=== PATIENT | female | born 1980 | race Hispanic/Latino ===

== ENCOUNTER → 2018-05-04 | Day surgery (SDC) | payer OTHER ==
[~2018-05-04] MED LIST: FENTANYL CITRATE/PF 100MCG/2 ML INJ ONE; HYOSCYAMINE SULFATE 0.5 MG/ML AMP ONE; MIDAZOLAM HCL 2 MG/2 ML VIAL ONE; PROPOFOL IV EMULSION 10 MG/ML 20 ML VIAL ONE; PROPOFOL IV EMULSION 10 MG/ML 50 ML VIAL ONE; TRINESSA1 EACH PO
[2018-05-04 10:45] LABS: WBC,FECAL (FECAL LACTOFERRIN) NEGATIVE (NEGATIVE)
--- NOTE | 2018-05-04 11:34 | Operative Report ---
DATE OF PROCEDURE: May 04, 2018 REFERRING PHYSICIAN: Dr. Cecilio Roberts PROCEDURES PERFORMED 1. Esophagogastroduodenoscopy with biopsies. 2. Colonoscopy with polypectomy and biopsies. INDICATIONS FOR EGD: Dyspepsia. INDICATIONS FOR COLONOSCOPY: Family history of colon cancer and history of diarrhea. MEDICATION: Patient was done under MAC. Please see anesthesiologist's note. PROCEDURE: With the patient in the left lateral decubitus position, the flexible fiberoptic Olympus gastroscope was introduced into the esophagus under direct visualization without any difficulty. There was some patchy erythema noted in the distal esophagus. The GE junction was somewhat nodular and that was biopsied. The scope was then advanced with ease into the stomach. Mucosa overlying the antrum and the body revealed some patchy erythema and low-grade edema, and biopsies were obtained and sent to stain for H. pylori. Pylorus appeared to be of normal contour and shape. It was intubated with ease. The scope was advanced all the way to the 2nd portion of the duodenum. Biopsies were obtained from the proximal 2nd portion to rule out sprue. The mucosa overlying the duodenal bulb appeared to be within normal limits. The scope was then withdrawn back into the stomach and retroflexed. The mucosa overlying the fundus and the cardia appeared to be within normal limits. The scope was then straightened out. The stomach was decompressed. The scope was subsequently withdrawn. Patient tolerated the procedure well. IMPRESSION 1. Distal esophagitis, mild. 2. Gastroesophageal junction, somewhat nodular, biopsied. 3. Gastritis, biopsied. Biopsies sent to stain for Helicobacter pylori. 4. Rule out sprue. PLAN: Follow up histology. Initiate Protonix 40 mg 1 p.o. q.a.m. a.c. Patient was then turned around. After adequate lubrication of the anal canal, a flexible fiberoptic Olympus colonoscope was inserted into the rectum with ease and advanced all the way to the cecum. The scope was then withdrawn slowly. Mucosa overlying the cecum appeared to be within normal limits. The ileocecal valve was intubated and the scope was advanced into the terminal ileum. Biopsies were obtained. The scope was then withdrawn back into the colon. It was then withdrawn slowly. Mucosa overlying the ascending and the transverse appeared to be within normal limits. One polyp was snared from the descending colon. The mucosa overlying the descending, sigmoid and rectum revealed some patchy areas of erythema and low-grade to moderate edema, and random biopsies were obtained. The scope was then retroflexed into the distal rectum and small internal hemorrhoids were noted, none of which was actively bleeding. The scope was then straightened out. It was subsequently withdrawn after securing an adequate stool specimen that was sent for the appropriate stool studies. Patient tolerated the procedure well. IMPRESSION 1. Descending colon polyp, snared. 2. Mild patchy left-sided colitis. 3. Proctitis, mild. 4. Internal hemorrhoids, none actively bleeding. PLAN: Follow up histology. Follow up stool studies. Start VSL #3 one p.o. daily and Bentyl 10 mg 1 p.o. t.i.d. Patient might benefit from a followup colonoscopy in 3-5 years. Job#: [id number] JOSSIE
[2018-05-04 14:44] LABS: C DIFFICILE TOXIN A&B AMP PROB NEGATIVE (NEGATIVE)
== END | disposition home or self-care (01) ==
LOC: OR 08:26
PROVIDERS: ATTEND Internal Medicine Gastroenterology
DX: K51.50 Left sided colitis without complications (principal); K63.5 Polyp of colon; K62.1 Rectal polyp; K29.70 Gastritis, unspecified, without bleeding; K20.9 Esophagitis, unspecified; K62.89 Other specified diseases of anus and rectum; K64.8 Other hemorrhoids; R03.0 Elevated blood-pressure reading, without diagnosis of hypertension; Z01.810 Encounter for preprocedural cardiovascular examination; Z68.31 Body mass index [BMI] 31.0-31.9, adult; Z80.0 Family history of malignant neoplasm of digestive organs
CPT/HCPCS: 43239; 45380; 45385; 81025; 83630; 83993; 87045; 87177; 87328; 87493; 93005; J1980; J2250

== ENCOUNTER 2020-03-24 22:45 | Emergency (ER) | payer OTHER ==
[~2020-03-24] VITALS: Ht 157.5 cm; Wt 80.7 kg
[~2020-03-24 22:45] MED LIST changes: -FENTANYL CITRATE/PF 100MCG/2 ML INJ ONE; -HYOSCYAMINE SULFATE 0.5 MG/ML AMP ONE; -MIDAZOLAM HCL 2 MG/2 ML VIAL ONE; -PROPOFOL IV EMULSION 10 MG/ML 20 ML VIAL ONE; -PROPOFOL IV EMULSION 10 MG/ML 50 ML VIAL ONE
[2020-03-24] MEDS ORDERED: CLONIDINE HCL 0.1 MG TAB PO ONE (23:00)
--- NOTE | 2020-03-24 23:08 | Emergency Department Note ---
History of Present Illnes History of Present Illness Chief Complaint: Chest Pain History of Present Illness This is a 39 year old female has been having chest tightness and high bp for the past 3 days, recently started on a bp medication. comes to the ed for further evaluation. dr lew in triage. ekg performed and given to dr lew. pt not having chest pain at this time. she states was started on nefedipine on sunday and has appointment with dr latonia wahl next sunday. Historian: Patient Arrival Mode: Car Onset (how long ago): day(s) (3) Radiation: Reports non-radiation Severity: mild Duration (how long): day(s) (3) Timing of current episode: intermittent Progression: resolved Context: Denies recent illness, Denies recent surgery, Denies recent travel Relieving factors: none Exacerbating factors: none Associated symptoms: Reports denies other symptoms Treatments prior to arrival: other (recently started on nefedipine) Past Medical/Family History Physician Review I have reviewed the patient's past medical and family history. Any updates have been documented here. Past Medical History Recent Fever: No Clinical Suspicion of Infectio: No New/Unexplained Change in Ment: No Past Medical History: Hypertension Other Medical History: gerd gastritis fibroids Past Surgical History: None Social History Smoking Cessation: Never Smoker Alcohol Use: None Any Illegal Drug Use: No Physically hurt or threatened: No Review of Systems Review of Systems Constitutional: Reports no symptoms EENTM: Reports no symptoms Cardiovascular: Reports as per HPI Respiratory: Reports no symptoms Gastrointestinal: Reports no symptoms Genitourinary: Reports no symptoms Musculoskeletal: Reports no symptoms Integumentary: Reports no symptoms Neurological: Reports no symptoms Psychological: Reports no symptoms Endocrine: Reports no symptoms Hematological/Lymphatic: Reports no symptoms Physical Exam Related Data Allergies: Coded Allergies: No Known Allergies (Unverified , 04/26/18) Triage Vital Signs Vital Signs Date Time Temp Pulse Resp B/P (MAP) Pulse Ox O2 Delivery O2 Flow Rate FiO2 03/24/20 22:50 98.3 116 22 199/113 100 Room Air Vital signs reviewed: Yes Physical Exam CONSTITUTIONAL Constitutional: Present well-developed, Present well-nourished, Present other (anxious) HENT HENT: Present normocephalic, Present atraumatic, Present oropharynx clear/moist, Present nose normal HENT L/R: Present left ext ear normal, Present right ext ear normal EYES Eyes: Reports PERRL, Reports conjunctivae normal NECK Neck: Present ROM normal PULMONARY Pulmonary: Present effort normal, Present breath sounds normal CARDIOVASCULAR Cardiovascular: Present regular rhythm, Present heart sounds normal, Present capillary refill normal, Present normal rate (96) GASTROINTESTINAL Abdominal: Present soft, Present nontender, Present bowel sounds normal GENITOURINARY Genitourinary: Present exam deferred SKIN Skin: Present warm, Present dry MUSCULOSKELETAL Musculoskeletal: Present ROM normal NEUROLOGICAL Neurological: Present alert, Present oriented x 3, Present no gross motor or sensory deficits PSYCHOLOGICAL Psychological: Present mood/affect normal, Present judgement normal Results Laboratory Laboratory Laboratory Tests Test 03/24/20 23:10 03/24/20 22:58 Urine Color Yellow (YELLOW) Urine Clarity Sl cloudy (CLEAR) Urine pH 5.5 (5 - 7) Urine Specific [place] 1.030 (1.010-1.025) Urine Protein Trace (NEGATIVE) Urine Glucose (UA) Negative (NEGATIVE) Urine Ketones Negative (NEGATIVE) Urine Blood Negative (NEGATIVE) Urine Nitrite Negative (NEGATIVE) Urine Bilirubin Negative (NEGATIVE) Urine Urobilinogen 0.2 mg/dL (0.2 - 1) Urine Leukocyte Esterase Negative (NEGATIVE) Urine RBC 0-5 /HPF (0-5) Urine WBC 6-10 /HPF (0-5) Urine Epithelial Cells Moderate /LPF (NONE) Urine Bacteria Many /HPF (NONE) Urine Test Negative (NEGATIVE) White Blood Count 8.90 x10e3/uL (4.8-10.8) Red Blood Count 4.59 x10e6/uL (3.6-5.1) Hemoglobin 12.0 g/dL (12.0-16.0) Hematocrit 38.4 % (34.2-44.1) Mean Corpuscular Volume 83.7 fL (81-99) Mean Corpuscular Hemoglobin 26.1 pg (28-32) Mean Corpuscular Hemoglobin Concent 31.3 g/dL (31-35) Red Cell Distribution Width 16.3 % (11.7-14.4) Platelet Count 540 x10e3/uL (140-360) Neutrophils (%) (Auto) 47.8 % (38.7-80.0) Lymphocytes (%) (Auto) 40.8 % (18.0-39.1) Monocytes (%) (Auto) 8.5 % (4.4-11.3) Eosinophils (%) (Auto) 1.8 % (0.0-6.0) Basophils (%) (Auto) 0.8 % (0.0-1.0) Neutrophils # (Auto) 4.3 (2.1-6.9) Lymphocytes # (Auto) 3.6 (1.0-3.2) Monocytes # (Auto) 0.8 (0.2-0.8) Eosinophils # (Auto) 0.2 (0.0-0.4) Basophils # (Auto) 0.1 (0.0-0.1) Absolute Immature Granulocyte (auto 0.03 x10e3/uL (0-0.1) Prothrombin Time 12.6 seconds (11.9-14.5) Prothromb Time International Ratio 0.90 Activated Partial Thromboplast Time 26.6 seconds (23.8-35.5) D-Dimer Quantitative (PE/DVT) < 100 ng/mL (0-400) Sodium Level 139 mmol/L (136-145) Potassium Level 3.7 mmol/L (3.5-5.1) Chloride Level 108 mmol/L (98-107) Carbon Dioxide Level 21 mmol/L (22-29) Anion Gap 13.7 mmol/L (8-16) Blood Urea Nitrogen 14 mg/dL (7-26) Creatinine 0.75 mg/dL (0.57-1.11) Estimat Glomerular Filtration Rate > 60 ML/MIN (60-) BUN/Creatinine Ratio 19 (6-25) Glucose Level 112 mg/dL (74-118) Calcium Level 9.4 mg/dL (8.4-10.2) Total Bilirubin 0.2 mg/dL (0.2-1.2) Aspartate Amino Transf (AST/SGOT) 83 IU/L (5-34) Alanine Aminotransferase (ALT/SGPT) 143 IU/L (0-55) Alkaline Phosphatase 133 IU/L (40-150) Creatine Kinase 114 IU/L (29-168) Creatine Kinase MB 0.60 ng/mL (0-5.0) Troponin I 0.012 ng/mL (0-0.300) Total Protein 8.1 g/dL (6.5-8.1) Albumin 3.5 g/dL (3.5-5.0) Globulin 4.6 g/dL (2.3-3.5) Albumin/Globulin Ratio 0.8 (0.8-2.0) Lab results reviewed: Yes Imaging Imaging results reviewed: Yes Impressions Procedure: [id number] DX/CHEST SINGLE (PORTABLE) Exam Date: Exam Time: REPORT STATUS: Signed EXAMINATION: CHEST SINGLE (PORTABLE) INDICATION: Chest pain COMPARISON: None FINDINGS: TUBES and LINES: None. LUNGS: Normal lung volumes. Lungs are clear. No consolidations. PLEURA: No pleural effusion or pneumothorax. HEART AND MEDIASTINUM: The cardiomediastinal silhouette is unremarkable. BONES AND SOFT TISSUES: No acute osseous lesion. Soft tissues are unremarkable. UPPER ABDOMEN: No free air under the diaphragm. IMPRESSION: No acute thoracic radiographic abnormality. Signed by: Jassi Vaughn DO on 03/25/2020 12:24 AM Dictated By: JASSI VAUGHN DO Transcribed By: ESDRAS on 03/25/2023 Procedures 12 Lead ECG Interpretation ECG Interpretation : ECG: ECG 1 Strainer Tender: Interpreted by ED physician Date: Mar 24, 2020 Time: 22:56 Prior ECG tracings: reviewed Rhythm: sinus rhythm Rate: normal BPM: 94 QRS axis: normal ST segments normal: Yes T waves normal: Yes Other findings: no other findings Clinical Impression: normal ECG Assessment & Plan Medical Decision Making MDM pt with elevated blood pressure and chest pain. cbc,cmp, cardiac enzymes, ekg, cxr, ua, d-dimer ordered to eval for myocardial infarction, pulmonary embolism, electrolyte abnormality. clonidine 0.1 mg po ordered pt discharged home to follow up with dr latonia wahl as scheduled macrobid 100 mg po bid Reassessment Reassessment time: 00:54 Reassessment bp 164/92 Assessment & Plan Final Impression: (1) Chest discomfort (2) HTN (hypertension) (3) UTI (urinary tract infection) Depart Disposition: HOME, SELF-CARE Last Vital Signs Date Time Temp Pulse Resp B/P (MAP) Pulse Ox O2 Delivery O2 Flow Rate FiO2 03/24/20 22:50 98.3 116 22 199/113 100 Room Air Home Meds Reported Medications Norgestimate-Ethinyl Estradiol (TRINESSA) 1 Each Tablet, PO DAILY 04/26/18 Medications in the ED Clonidine HCl 0.1 mg ONCE ONCE PO ; Start 03/24/20 at 23:00; Stop 03/24/20 at 23:01; Status UNV BELINDA LEW MD Mar 24, 2020 23:08
[2020-03-24 23:43] LABS: BASOPHILS # (AUTO) 0.1 (0.0-0.1); BASOPHILS % 0.8 % (0.0-1.0); EOSINOPHILS # (AUTO) 0.2 (0.0-0.4); EOSINOPHILS % 1.8 % (0.0-6.0); HEMATOCRIT 38.4 % (34.2-44.1); LYMPHOCYTES # (AUTO) 3.6 (1.0-3.2); LYMPHOCYTES % 40.8 % (18.0-39.1); MEAN CORPUSCULAR HEMOGLOBIN 26.1 pg (28-32); MEAN CORPUSCULAR HGB CONC 31.3 g/dL (31-35); MEAN CORPUSCULAR VOLUME 83.7 fL (81-99); MONOCYTES # (AUTO) 0.8 (0.2-0.8); MONOCYTES % 8.5 % (4.4-11.3); NEUTROPHILS # (AUTO) 4.3 (2.1-6.9); NEUTROPHILS % 47.8 % (38.7-80.0); PLATELET COUNT 540 x10e3/uL (140-360); RED BLOOD COUNT 4.59 x10e6/uL (3.6-5.1); RED CELL DISTRIBUTION WIDTH 16.3 % (11.7-14.4)
[2020-03-24 23:45] LABS: BILIRUBIN,URINE NEGATIVE (NEGATIVE); CLARITY,URINE SL CLOUDY (CLEAR); COLOR,URINE YELLOW (YELLOW); KETONES,URINE NEGATIVE (NEGATIVE); LEUKOCYTE ESTERASE ,URINE NEGATIVE (NEGATIVE); NITRITE,URINE NEGATIVE (NEGATIVE); PREGNANCY TEST, URINE NEGATIVE (NEGATIVE); PROTEIN,URINE DIPSTICK TRACE (NEGATIVE); URINE UROBILINOGEN 0.2 mg/dL (0.2 - 1)
[2020-03-24 23:50] LABS: BACTERIA,URINE MANY /HPF; EPITHELIAL CELLS,URINE MODERATE /LPF; RBC,URINE 0-5 /HPF (0-5)
[2020-03-24 23:52] LABS: INR 0.9; PROTHROMBIN TIME 12.6 seconds (11.9-14.5)
[2020-03-24 23:53] LABS: PARTIAL THROMBOPLASTIN TIME 26.6 seconds (23.8-35.5)
[2020-03-25 00:02] LABS: ALANINE AMINOTRANSFERASE 143 IU/L (0-55); ALBUMIN 3.5 g/dL (3.5-5.0); ALBUMIN/GLOBULIN RATIO 0.8 (0.8-2.0); ALKALINE PHOSPHATASE 133 IU/L (40-150); ANION GAP 13.7 mmol/L (8-16); BLOOD UREA NITROGEN 14 mg/dL (7-26); BUN/CREATININE RATIO 19 (6-25); CALCIUM 9.4 mg/dL (8.4-10.2); CARBON DIOXIDE 21 mmol/L (22-29); CHLORIDE 108 mmol/L (98-107); CREATINE KINASE 114 IU/L (29-168); CREATININE, SERUM 0.75 mg/dL (0.57-1.11); EST GLOMERULAR FILTRATION RATE > 60 ML/MIN (60-); GLUCOSE 112 mg/dL (74-118); POTASSIUM 3.7 mmol/L (3.5-5.1); SODIUM 139 mmol/L (136-145)
--- NOTE | 2020-03-25 00:27 | Diagnostic Imaging Report ---
EXAMINATION: CHEST SINGLE (PORTABLE) INDICATION: Chest pain COMPARISON: None FINDINGS: TUBES and LINES: None. LUNGS: Normal lung volumes. Lungs are clear. No consolidations. PLEURA: No pleural effusion or pneumothorax. HEART AND MEDIASTINUM: The cardiomediastinal silhouette is unremarkable. BONES AND SOFT TISSUES: No acute osseous lesion. Soft tissues are unremarkable. UPPER ABDOMEN: No free air under the diaphragm. IMPRESSION: No acute thoracic radiographic abnormality. Signed by: Jassi Vaughn DO on 03/25/2020 12:24 AM
[2020-03-25 00:56] VITALS: BP 164/92
--- NOTE | 2020-03-25 00:57 | NUR ---
patient now denies chest pain, chest tightness after all results were given to patient stating her examinations were unremarkable. patient denies pain at this moment.
--- OUTSIDE RECORDS SUMMARY | 2020-03-26 20:26 | XMS REPORT | Clinical Summary ---
Author Author [facility] Address Unknown Phone Unavailable Care Team Providers Care Multiple Drum Sander Helper Name Role Phone Andre Alvarez MD PCP Allergies No Known Allergies Medications End Date Status Medication Sig Dispensed Refills Start Date Active TRINESSA, 28, TK 1 T PO 3 0.18/0.215/0.25 mg-35 mcg ONCE A DAY 6 (28) per tablet Active Problems No known active problems Immunizations Name Administration Dates Next Due Tdap 06/30/2016 Family History Medical History Relation Name Comments Breast cancer Maternal Aunt Colon cancer Maternal Grandfather Hypertension Maternal Grandfather Cancer Maternal bladder and esophgu s Grandmother Hypertension Maternal Grandmother Breast cancer Mother Hypertension Mother Relation Name Status Comments Maternal Aunt Alive Maternal Grandfather Maternal Grandmother Mother Alive Social History Date Tobacco Use Types Packs/Day Years Used Former Smoker Cigarettes 0.1 2 Tobacco Cessation: Counseling Given: No Drinks/Week oz/Week Comments Alcohol Use Yes Sex Assigned at Date Recorded Not on file Industry Job Start Date Occupation Not on file Not on file Not on file Travel End Travel History Travel Start No recent travel history available. Last Filed Vital Signs Not on file Plan of Treatment Health Maintenance Due Date Last Done Comments CERVICAL CANCER SCREENING 1999 INFLUENZA VACCINE 03/27/2020 Results Not on fileafter 03/24/2019 Insurance Type Payer Benefit Subscriber ID Effective Phone Address Plan / Dates Group HMO AETNA AETNA xxxxxxxxxx [id number] HMO,POS,EP resent O, [facility] Advance Directives For more information, please contact: [phone] Patient Clinical Scientist Explanation Type Date Recorded Advance Directives, Living Will and Medical Power of Production Counter
--- OUTSIDE RECORDS SUMMARY | 2020-03-26 20:26 | XMS REPORT | Continuity of Care Document ---
Author Author [facility] t Organization [facility] Address [address] [place] [address] Phone Unavailable Care Team Providers Care Internal Affairs Investigator Name Role Phone NO, PCP PCP Unavailable Ander LEW Attlucero Unavailable Payers Payer Name Policy Type Policy Number Effective Date Expiration Date [place] o [id number] 2017 00:00:00 [facility] Problems Condition Name Condition Details Condition Category Status Onset Date Resolution Date Last Treatment Date Treating Clinician Comments Source Chest discomfort Problem Active [facility] Hypertension Problem Active [facility] Urinary tract infection Problem Active [facility] Allergies, Adverse Reactions, Alerts This patient has no known allergies or adverse reactions. Family History Family Member Diagnosis Comments Start Date Stop Date Source Maternal aunt Breast cancer Justus Rivero Maternal grandfather Colon cancer [facility] Maternal grandfather Hypertension [place] [facility] Maternal grandmother Cancer [place] sandrita [facility] Maternal grandmother Hypertension [place] [facility] Natural mother Breast cancer Jerome [facility] Natural mother Hypertension Justus Rivero Social History Social Habit Start Date Stop Date Quantity Comments Source History of tobacco use Cigarette Smoker Justus Rivero Sex Assigned At Sanjay johny Rivero Cigarettes smoked current (pack per day) - Reported 00:00:00 2016-06-30 00:00:00 Justus Rivero Cigarette pack-years 2016-06-30 00:00:00 2016-06-30 00:00:00 Justus Rivero Alcohol intake 2016-06-30 00:00:00 2016-06-30 00:00:00 Current drinker of alcohol (finding) [facility] Smoking Status Start Date Stop Date Source Former smoker 2016-06-30 00:00:00 2016-06-30 00:00:00 Justus Rivero Medications Ordered Medication Name Filled Medication Name Start Date Stop Da te Current Medication? Ordering Clinician Indication Dosage Frequency Signature (SIG) Comments Components Source TRINESSA, 28, 0.18/0.215/0.25 mg-35 mcg (28) per tablet 2015-12-12 00:00:00 Yes TK 1 T PO ONCE A DAY Sanjay johny Anglican Norgestimate-Ethinyl Estradiol (Trinessa) 1 Each TABLE T Norgestimate-Ethinyl Estradiol (Trinessa) 1 Each TABLET Yes Jayashree ly [facility] Immunizations Ordered Immunization Name Filled Immunization Name Date Status Comments Source Tdap 2016-06-30 00:00:00 Completed [place] [facility] Vital Signs Vital Name Observation Time Observation Value Comments Source Body Temperature 2020-03-25 00:56:00 98.5 [degF] [facility] Weight 2020-03-24 22:50:00 178 [lb_av] [facility] BMI (Body Mass Index) 2020-03-24 22:50:00 32.6 kg/m2 [facility] Procedures This patient has no known procedures. Plan of Care Planned Activity Planned Date Details Comments Source Future Scheduled Test 2020-03-27 00:00:00 INFLUENZA VACCINE [code = INFLUENZA VACCINE] Jutsus Rivero Future Scheduled Test 1999 00:00:00 Screening for carina gnant neoplasm of cervix (procedure) [code = 319441880] Justus mariscal Instructions Chest Pain - Noncardiac [facility] Instructions Hypertension [facility] Instructions Urinary Tract Infection - Women [facility] Encounters Start Date/Time End Date/Time Encounter Type Admission Type [facility] Facility Care Department Encounter ID Source 2020-03-24 22:57:00 2020-03-25 01:00:00 Departed Emergency Room 1 BELINDA LEW [facility] [id number] [facility] Results Test Description Test Time Test Comments Results Result Comments Source CHEST SINGLE (PORTABLE) 2020-03-25 00:23:00 [facility] [address] [address] Patient Name: SARAH ANNE MR #: [id number] : 1980 Age/Sex: 39/F Req #: [id number] Adm Physician: Ordered by: BELINDA LEW MD Report #: [id number] Location: ER Room/Bed: Procedure: [id number] DX/CHEST SINGLE (PORTABLE) Exam Date: Exam Time: REPORT STATUS: Signed EXAMINATION: CHEST SINGLE (PORTABLE) INDICATION: Chest pain COMPARISON: None FINDINGS: TUBES and LINES: None. LUNGS: Normal lung volumes. Lungs are clear. No consolidations. PLEURA: No pleural effusion or pneumothorax. HEART AND MEDIASTINUM: The cardiomediastinal silhouette is unremarkable. BONES AND SOFT TISSUES: No acute osseous lesion. Soft tissues are unremarkable. UPPER ABDOMEN: No free air under the diaphragm. IMPRESSION: No acute thoracic radiographic abnormality. Signed by: Jassi Vaughn DO on 03/25/2020 12:24 AM Dictated By: JASSI VAUGHN DO Transcribed By: ESDRAS on 03/25/2023 COPY TO: BELINDA LEW MD Urine color determination 2020-03-24 23:10:00 Test Item Urine Color (test code = 5778-6) YELLOW YELLOW [facility] [id number] 23:10:00* Test Item Value Reference Range Interpretation Comments Urine Clarity (test code = 96241-5) SL CLOUDY CLEAR [facility] of Urine by Test strip 2020-03-24 23:10:00* Test Item Value Reference Range Interpretation Comments Urine Specific [place] (test code = 5811-5) 1.030 1.010-1.02 5 [facility] pH measurement by automated test [id number] 23:10:00* Test Item Value Reference Range Interpretation Comments Urine pH (test code = 25680-9) 5.5 5-7 [facility] leukocyte esterase detection by wxcjzgqy2438-44-48 23:10:00* Test Item Value Reference Range Interpretation Comments Urine Leukocyte Esterase (test code = 5799-2) NEGATIVE NEGATIVE [facility] nitrite [id number] 23:10:00* Test Item Value Reference Range Interpretation Comments Urine Nitrite (test code = 68155-5) NEGATIVE NEGATIVE [facility] protein measurement by test strip (mass/volume)2020-03-24 23:10:00* Test Item Value Reference Range Interpretation Comments Urine Protein (test code = 5804-0) TRACE NEGATIVE [facility] glucose zqzdyegdq6888-39-19 23:10:00* Test Item Value Reference Range Interpretation Comments Urine Glucose (UA) (test code = 2349-9) NEGATIVE NEGATIVE [facility] ketones detection by automated test [id number] 23:10:00* Test Item Value Reference Range Interpretation Comments Urine Ketones (test code = 50200-3) NEGATIVE NEGATIVE [facility] urobilinogen measurement by test strip (mass/volume)2020-03-24 23:10:00* Test Item Value Reference Range Interpretation Comments Urine Urobilinogen (test code = 20797-1) 0.2 0.2-1 [facility] total bilirubin measurement (mass/volume)2020-03-24 23:10:00* Test Item Value Reference Range Interpretation Comments Urine Bilirubin (test code = 1978-6) NEGATIVE NEGATIVE [facility] erythrocytes wqgqqwkmc0785-28-33 23:10:00* Test Item Value Reference Range Interpretation Comments Urine Blood (test code = 65112-4) NEGATIVE NEGATIVE [facility] HospitalAutomated urine sediment leukocyte count by microscopy (number/high power field)2020-03-24 23:10:00* Test Item Value Reference Range Interpretation Comments Urine WBC (test code = 5821-4) 6-10 0-5 [facility] HospitalErythrocytes detection in urine sediment by light myffjixfmg2573-89-03 23:10:00* Test Item Value Reference Range Interpretation Comments Urine RBC (test code = 81074-8) 0-5 0-5 [facility] HospitalBacteria detection in urine sediment by light blunhmwwma5334-51-98 23:10:00* Test Item Value Reference Range Interpretation Comments Urine Bacteria (test code = 38872-2) MANY NONE [facility] HospitalEpithelial cells detection in urine sediment by light yhrddglyjg5096-74-89 23:10:00* Test Item Value Reference Range Interpretation Comments Urine Epithelial Cells (test code = 01128-6) MODERATE NONE [facility] HospitalUrine human chorionic gonadotropin (hCG) zbpgacxbr5411-06-86 23:10:00* Test Item Value Reference Range Interpretation Comments Urine Test (test code = 2106-3) NEGATIVE NEGATIVE [facility] HospitalBlood leukocytes automated count (number/volume)2020-03-24 22:58:00* Test Item Value Reference Range Interpretation Comments White Blood Count (test code = 6690-2) 8.90 4.8-10.8 [facility] HospitalBlood erythrocytes automated count (number/volume)2020-03-24 22:58:00* Test Item Value Reference Range Interpretation Comments Red Blood Count (test code = 789-8) 4.59 3.6-5.1 [facility] HospitalBlood hemoglobin measurement (moles/volume)2020-03-24 22:58:00* Test Item Value Reference Range Interpretation Comments Hemoglobin (test code = 39594-9) 12.0 12.0-16.0 [facility] HospitalAutomated blood hematocrit (volume fraction)2020-03-24 22:58:00* Test Item Value Reference Range Interpretation Comments Hematocrit (test code = 4544-3) 38.4 34.2-44.1 [facility] HospitalAutomated erythrocyte mean corpuscular qoqnis8787-96-40 22:58:00* Test Item Value Reference Range Interpretation Comments Mean Corpuscular Volume (test code = 787-2) 83.7 81-99 [facility] HospitalAutomated erythrocyte mean corpuscular hemoglobin (mass per erythrocyte)2020-03-24 22:58:00* Test Item Value Reference Range Interpretation Comments Mean Corpuscular Hemoglobin (test code = 785-6) 26.1 28-32 [facility] HospitalAutomated erythrocyte mean corpuscular hemoglobin concentration measurement (mass/volume)2020-03-24 22:58:00* Test Item Value Reference Range Interpretation Comments Mean Corpuscular Hemoglobin Concent (test code = 786-4) 31.3 31-35 [facility] HospitalRDW WiuXk-Dxw5224-07-29 22:58:00* Test Item Value Reference Range Interpretation Comments Red Cell Distribution Width (test code = 88176-0) 16.3 11.7 -14.4 [facility] HospitalAutomated blood platelet count (count/volume)2020-03-24 22:58:00* Test Item Value Reference Range Interpretation Comments Platelet Count (test code = 777-3) 540 140-360 [facility] HospitalAutlevine children's hospitaled blood segmented neutrophil count as percentage of total wgfxuxzhzd3829-10-71 22:58:00* Test Item Value Reference Range Interpretation Comments Neutrophils (%) (Auto) (test code = 61023-3) 47.8 38.7-80.0 [facility] HospitalAutomated blood lymphocyte count as percentage ot total pkxecqzdbk3895-63-08 22:58:00* Test Item Value Reference Range Interpretation Comments Lymphocytes (%) (Auto) (test code = 736-9) 40.8 18.0-39.1 [facility] HospitalAutomated blood monocyte count as percentage of total gwghyhboov3698-80-27 22:58:00* Test Item Value Reference Range Interpretation Comments Monocytes (%) (Auto) (test code = 5905-5) 8.5 4.4-11.3 [facility] HospitalAutomated blood eosinophil count as percentage of total tlrjygudmv2212-05-25 22:58:00* Test Item Value Reference Range Interpretation Comments Eosinophils (%) (Auto) (test code = 713-8) 1.8 0.0-6.0 [facility] HospitalAutomated blood basophil count as percentage of total kntqrwfnkr3081-72-48 22:58:00* Test Item Value Reference Range Interpretation Comments Basophils (%) (Auto) (test code = 706-2) 0.8 0.0-1.0 [facility] HospitalFluoroscopic procedure less than one hour bwlbjita8973-70-06 22:58:00* Test Item Value Reference Range Interpretation Comments IM GRANULOCYTES % (test code = IM GRANULOCYTES %) 0.3 0.0- 1.0 [facility] HospitalAutomated blood neutrophil count 2020-03-24 22:58:00* Test Item Value Reference Range Interpretation Comments Neutrophils # (Auto) (test code = 751-8) 4.3 2.1-6.9 [facility] HospitalBlood lymphocytes count (number/volume) 2020-03-24 22:58:00* Test Item Value Reference Range Interpretation Comments Lymphocytes # (Auto) (test code = 46496-1) 3.6 1.0-3.2 [facility] HospitalBlredwood llc monocytes automated count (number/volume)2020-03-24 22:58:00* Test Item Value Reference Range Interpretation Comments Monocytes # (Auto) (test code = 742-7) 0.8 0.2-0.8 [facility] HospitalAutomated blood eosinophil count 2020-03-24 22:58:00* Test Item Value Reference Range Interpretation Comments Eosinophils # (Auto) (test code = 711-2) 0.2 0.0-0.4 [facility] HospitalAutomated blood basophil count (count/volume)2020-03-24 22:58:00* Test Item Value Reference Range Interpretation Comments Basophils # (Auto) (test code = 704-7) 0.1 0.0-0.1 [facility] HospitalFluoroscopic procedure less than one hour gnumgrvp8380-01-82 22:58:00* Test Item Value Reference Range Interpretation Comments Absolute Immature Granulocyte (auto (deandra t code = Absolute Immature Granulocyte (auto) 0.03 0-0.1 [facility] HospitalProthrombin time (PT) in platelet poor plasma by coagulation bnxkf6467-07-56 22:58:00* Test Item Value Reference Range Interpretation Comments Prothrombin Time (test code = 5902-2) 12.6 11.9-14.5 [facility] HospitalINR in Platelet poor plasma by Coagulation jhsqn4341-55-32 22:58:00* Test Item Value Reference Range Interpretation Comments Prothromb Time International Ratio (test code = 6301-6) 0.90 Oral Anticoagulant Therapy INR Values:1. Low Intensity Therapy 1.5 - 2.02 . Moderate Intensity Therapy 2.0 - 3.03. High Intensity Therapy(1) 2.5 - 3. 54. High Intensity Therapy(2) 3.0 - 4.05. Panic Value INR > 5.0 [facility] HospitalActivated partial thromboplastin time (aPTT) in platelet poor plasma by coagulation dggla0740-21-39 22:58:00* Test Item Value Reference Range Interpretation Comments Activated Partial Thromboplast Time (test code = 10393-0) 26.6 23.8-35.5 [facility] HospitalFibrin D-dimer DDU measurement in platelet poor plasma (mass/volume)2020-03-24 22:58:00* Test Item Value Reference Range Interpretation Comments D-Dimer Quantitative (PE/DVT) (test code = 86866-5) < 100 0- 400 As with all in vitro diagnostic tests, the test results should be interpreted by the physician in conjunction with clinical findings and other test results.Test results are reported in NEW D-dimer units(ug/mLFEU).[facility] Antonioerum or plasma sodium measurement (moles/volume)2020-03-24 22:58:00* Test Item Value Reference Range Interpretation Comments Sodium Level (test code = 2951-2) 139 136-145 [facility] Antonioerum or plasma potassium measurement (moles/volume)2020-03-24 22:58:00* Test Item Value Reference Range Interpretation Comments Potassium Level (test code = 2823-3) 3.7 3.5-5.1 [facility] Antonioerum or plasma chloride measurement (moles/volume)2020-03-24 22:58:00* Test Item Value Reference Range Interpretation Comments Chloride Level (test code = 2075-0) 108 98-107 [facility] Antonioerum or plasma carbon dioxide, total measurement (moles/volume)2020-03-24 22:58:00* Test Item Value Reference Range Interpretation Comments Carbon Dioxide Level (test code = 2028-9) 21 -29 [facility] Antonioerum or plasma anion ewu8279-35-73 22:58:00* Test Item Value Reference Range Interpretation Comments Anion Gap (test code = 74549-2) 13.7 8-16 [facility] Antonioerum or plasma urea nitrogen measurement (mass/volume)2020-03-24 22:58:00* Test Item Value Reference Range Interpretation Comments Blood Urea Nitrogen (test code = 3094-0) 14 7-26 [facility] Antonioerum or plasma creatinine measurement (mass/volume)2020-03-24 22:58:00* Test Item Value Reference Range Interpretation Comments Creatinine (test code = 2160-0) 0.75 0.57-1.11 [facility] Antonioerum or plasma urea nitrogen/creatinine mass imdql3127-34-90 22:58:00* Test Item Value Reference Range Interpretation Comments BUN/Creatinine Ratio (test code = 3097-3) 19 6-25 [facility] HospitalEstimated glomerular filtration rate (GFR) nuxhgpnqggbkg0971-43-53 22:58:00* Test Item Value Reference Range Interpretation Comments Estimat Glomerular Filtration Rate (test code = 644850468) > 60 >60 Ranges were taken from the National Kidney Disease Education Program and the [facility] [employer] literature.Reference ranges:60 or greater: Riiapx82-04 ( for 3 consecutive months): Chronic kidney disease 15 or less: Kidney failureMidland Memorial HospitalGlucose afoboghcdrz3957-65-58 22:58:00* Test Item Value Reference Range Interpretation Comments Glucose Level (test code = ATE9278) 112 74-118 [facility] Antonioerum or plasma calcium measurement (mass/volume)2020-03-24 22:58:00* Test Item Value Reference Range Interpretation Comments Calcium Level (test code = 79319-3) 9.4 8.4-10.2 [facility] Antonioerum or plasma total bilirubin measurement (mass/volume)2020-03-24 22:58:00* Test Item Value Reference Range Interpretation Comments Total Bilirubin (test code = 1975-2) 0.2 0.2-1.2 [facility] HospitalFluoroscopic procedure less than one hour ifndkkjk1367-75-20 22:58:00* Test Item Value Reference Range Interpretation Comments Aspartate Amino Transf (AST/SGOT) (test code = Aspartate Amino Transf (AST/SGOT)) 83 5-34 [facility] Antonioerum or plasma alanine aminotransferase measurement (enzymatic activity/volume)2020-03-24 22:58:00* Test Item Value Reference Range Interpretation Comments Alanine Aminotransferase (ALT/SGPT) (test code = 1742-6) 143 0-55 [facility] Antonioerum or plasma protein measurement (mass/volume)2020-03-24 22:58:00* Test Item Value Reference Range Interpretation Comments Total Protein (test code = 2885-2) 8.1 6.5-8.1 [facility] Antonioerum or plasma albumin measurement (mass/volume)2020-03-24 22:58:00* Test Item Value Reference Range Interpretation Comments Albumin (test code = 1751-7) 3.5 3.5-5.0 [facility] HospitalPlasma globulin measurement (mass/volume) 2020-03-24 22:58:00* Test Item Value Reference Range Interpretation Comments Globulin (test code = 17703-8) 4.6 2.3-3.5 [facility] Antonioerum or plasma albumin/globulin mass zvbvg5252-75-75 22:58:00* Test Item Value Reference Range Interpretation Comments Albumin/Globulin Ratio (test code = 1759-0) 0.8 0.8-2.0 [facility] Antonioerum or plasma alkaline phosphatase measurement (enzymatic activity/volume)2020-03-24 22:58:00* Test Item Value Reference Range Interpretation Comments Alkaline Phosphatase (test code = 6768-6) 133 40-150 [facility] Antonioerum or plasma creatine kinase measurement (enzymatic activity/volume)2020-03-24 22:58:00* Test Item Value Reference Range Interpretation Comments Creatine Kinase (test code = 2157-6) 114 29-168 [facility] Antonioerum or plasma creatine kinase MB measurement (mass/volume)2020-03-24 22:58:00* Test Item Value Reference Range Interpretation Comments Creatine Kinase MB (test code = 26108-4) 0.60 0-5.0 [facility] HospitalTroponin I measurement by highly sensitive enzyme aoqumtfwowu3655-87-80 22:58:00* Test Item Value Reference Range Interpretation Comments Troponin I (test code = 45490-9) 0.012 0-0.300 [facility] AntonioCR MAMM BILATERAL SEAN CAD DIGITAL 2019-07-18 15:36:27 - SCR MAMM BILATERAL SEAN CAD DIGITALBILATERAL DIGITAL SCREENING MAMMOGRAM 3D/2D WITH CAD: 07/18/2019CLINICAL: Asymptomatic. Digital breast tomosynthesis was performed in addition to routine CC and MLO views. Current mammographic images were evaluated by either a Equ[employer]-Vu or a Data[employer]ia ImageChecker CAD (computer aided detection system). Comparison is made to exams dated 07/17/2018 mammogram, 06/18/2017 mammogram, and 05/31/2016 mammogram - [facility]. The tissue of both breasts is extremely dense, which lowers the sensitivity of mammography. No suspicious mass, architectural distortion, malignant type calcification, or lymph node abnormality detected. Breast architecture is stable compared to prior exams.IMPRESSION: NEGATIVEThere is no mammographic evidence of malignancy. Resume annual screening mammography in one year. Biju martinezn/penrad:07/18/2019 15:36:27 Financial Rep: Racheal GALVAN, [facility] sent: BIRADS 1-2 Normal Mammogram BI-RADS: 1 NegativeSCR MAMM BILATERAL SEAN CAD DIGITAL 2018-07-17 16:31:35 - SCR MAMM BILATERAL SEAN CAD DIGITALBILATERAL DIGITAL SCREENING MAMMOGRAM 3D/2D WITH CAD: 07/17/2018CLINICAL: Asymptomatic. Digital breast tomosynthesis was performed in addition to routine CC and MLO views. Current mammographic images were evaluated by either a Vu[employer] M-Vu or a [employer] ImageChecker CAD (computer aided detection system). Comparison is made to exams dated 06/18/2017 mammogram, 05/31/2016 mammogram, and 01/22/2015 mammogram - [facility]. The tissue of both breasts is extremely dense, which lowers the sensitivity of mammography. No suspicious mass, architectural distortion, malignant type calcification, or lymph node abnormality detected. Stable bilateral oval masses with circumscribed margins are noted.Breast architecture is stable compared to prior exams.IMPRESSION: BENIGNThere is no mammographic evidence of malignancy. Resume annual screening mammography in one year. Biju Trejo M.D. qn/:07/17/2018 16:31:35 Financial Rep: Yuliet GALVAN, [facility] sent: BIRADS 1-2 Normal Mammogram BI-RADS: 2 Benign
== END 2020-03-25 01:00 | disposition home or self-care (01) ==
LOC: ER 22:57
DX: R07.89 Other chest pain (principal); I10 Essential (primary) hypertension; N39.0 Urinary tract infection, site not specified; K21.9 Gastro-esophageal reflux disease without esophagitis
CPT/HCPCS: 36415; 71045; 80053; 81001; 81025; 82550; 82553; 84484; 85025; 85379; 85610; 85730; 93005; 99284

== ENCOUNTER 2023-01-19 01:17 | Emergency (ER) | payer SELFPAY ==
[~2023-01-19] VITALS: Ht 157.5 cm; Wt 80.7 kg
[2023-01-19 01:49] LABS: BASOPHILS # (AUTO) 0.1 (0.0-0.1); BASOPHILS % 0.5 % (0.0-1.0); EOSINOPHILS # (AUTO) 0.1 (0.0-0.4); EOSINOPHILS % 0.7 % (0.0-6.0); HEMATOCRIT 39.5 % (34.2-44.1); HEMOGLOBIN 12.8 g/dL (12.0-16.0); LYMPHOCYTES # (AUTO) 3.2 (1.0-3.2); LYMPHOCYTES % 28.5 % (18.0-39.1); MEAN CORPUSCULAR HEMOGLOBIN 28.2 pg (28-32); MEAN CORPUSCULAR HGB CONC 32.4 g/dL (31-35); MONOCYTES # (AUTO) 0.8 (0.2-0.8); MONOCYTES % 6.8 % (4.4-11.3); NEUTROPHILS % 63.1 % (38.7-80.0); PLATELET COUNT 451 x10e3/uL (140-360); RED BLOOD COUNT 4.54 x10e6/uL (3.6-5.1); RED CELL DISTRIBUTION WIDTH 17.1 % (11.7-14.4)
[2023-01-19 02:00] LABS: BACTERIA,URINE MODERATE /HPF; CLARITY,URINE CLEAR (CLEAR); COLOR,URINE YELLOW (YELLOW); EPITHELIAL CELLS,URINE FEW /LPF; KETONES,URINE NEGATIVE (NEGATIVE); LEUKOCYTE ESTERASE ,URINE NEGATIVE (NEGATIVE); NITRITE,URINE NEGATIVE (NEGATIVE); PROTEIN,URINE DIPSTICK NEGATIVE (NEGATIVE); URINE UROBILINOGEN 0.2 mg/dL (0.2 - 1); WBC,URINE (MAN) 0-5 /HPF (0-5)
[2023-01-19 02:01] LABS: AMORPHOUS SEDIMENT,URINE FEW (FEW)
[2023-01-19] MEDS ORDERED: FAMOTIDINE 20 MG/2 ML VIAL IV STA (02:01)
[2023-01-19 02:04] LABS: ALBUMIN 4.1 g/dL (3.5-5.0); ANION GAP 18.1 mmol/L (8-16); CALCIUM 9.6 mg/dL (8.4-10.2); CREATININE, SERUM 0.77 mg/dL (0.57-1.11); POTASSIUM 3.1 mmol/L (3.5-5.1)
[2023-01-19] MEDS ORDERED: IOPAMIDOL 370 MG/ML 100 ML INFUS..BTL INJ ONE (02:10)
[2023-01-19] MEDS ORDERED: ONDANSETRON ODT4 MG PO (03:38)
[2023-01-19] MEDS ORDERED: PEPCID20 MG PO (03:38)
[2023-01-19 04:16] VITALS: BP 123/83; PULSE 76; RESP 16; TEMP 98.6; O2SAT 100
== END 2023-01-19 03:53 | disposition home or self-care (01) ==
LOC: ER 01:23
DX: R10.9 Unspecified abdominal pain (principal); R11.2 Nausea with vomiting, unspecified; D25.9 Leiomyoma of uterus, unspecified; I10 Essential (primary) hypertension; Z87.891 Personal history of nicotine dependence; Z79.899 Other long term (current) drug therapy
CPT/HCPCS: 36415; 74177; 80053; 81001; 81025; 83690; 85025; 93005; 99284; Q9967

== ENCOUNTER 2025-04-20 12:27 | Emergency (ER) | payer SELFPAY ==
[~2025-04-20] VITALS: Ht 157.5 cm; Wt 88.5 kg
[~2025-04-20 12:27] MED LIST changes: +ONDANSETRON ODT4 MG PO; +PEPCID20 MG PO
[2025-04-20 13:30] VITALS: PULSE 75; RESP 16; TEMP 98.5; O2SAT 100
[2025-04-20 13:58] LABS: BASOPHILS % 0.6 % (0.0-1.0); EOSINOPHILS % 2.1 % (0.0-6.0); LYMPHOCYTES % 23.7 % (18.0-39.1); MONOCYTES % 6.2 % (4.4-11.3); NEUTROPHILS % 67.3 % (38.7-80.0); RED CELL DISTRIBUTION WIDTH 13.6 % (11.7-14.4)
[2025-04-20] MEDS: DIPHENHYDRAMINE HCL INJ 50 MG/ML VIAL IV STA (14:25)
[2025-04-20] MEDS: KETOROLAC TROMETHAMINE 30 MG/ML VIAL IV STA (14:25)
[2025-04-20] MEDS: METHYLPREDNISOLONE SOD SUCC 125 MG/2ML VIAL IV STA (14:25)
[2025-04-20] MEDS: METOCLOPRAMIDE HCL 10 MG/2ML VIAL IV STA (14:25)
[2025-04-20] MEDS: SODIUM CHLORIDE 0.9% 1000ML 1,000 ML IV STA (14:25)
[2025-04-20 14:26] LABS: EST GLOMERULAR FILTRATION RATE 113.0 ML/MIN (>=60)
[2025-04-20 15:29] LABS: CORONAVIRUS COVID-19 AG NEGATIVE (NEGATIVE)
[2025-04-20] MEDS ORDERED: FIORICET 50-301 EACH PO (15:42)
== END 2025-04-20 15:49 | disposition home or self-care (01) ==
LOC: ER 12:43
DX: R51.9 Headache, unspecified (principal); I10 Essential (primary) hypertension
CPT/HCPCS: 36415; 70450; 80053; 85025; 87426; 99284; J1200; J1885; J2765; J2919; J7030